=== PATIENT | female | born 1995 | race Two or more races ===

== ENCOUNTER → 2018-08-31 | Outpatient (CLI) | payer MEDICAID | END | disposition home or self-care (01) | LOC: U/S 08:00 | DX: O26.90 Pregnancy related conditions, unspecified, unspecified trimester (principal); Z3A.00 Weeks of gestation of pregnancy not specified | CPT/HCPCS: 76801; 76817 ==

== ENCOUNTER 2019-04-26 15:08 | Outpatient (CLI) | payer MEDICAID | END 2019-04-26 22:15 | disposition home or self-care (01) | LOC: OBT 15:08 → L-D 15:10 → OBT 22:15 | DX: O47.1 False labor at or after 37 completed weeks of gestation (principal); Z3A.39 39 weeks gestation of pregnancy | CPT/HCPCS: 76818 ==

== ENCOUNTER 2019-05-01 13:00 | Inpatient (IN) | payer MEDICAID ==
[2019-05-01 13:37] LABS: RUPTURE FETAL MEMBRANES POSITIVE (NEGATIVE)
[2019-05-01] MEDS ORDERED: OXYTOCIN 30 UNITS/LR 500 ML IV (15:00)
[2019-05-01] MEDS ORDERED: METHYLERGONOVINE 0.2 MG INJ IM (15:00)
[2019-05-01] MEDS ORDERED: CARBOPROST 250 MCG INJ IM (15:00)
[2019-05-01] MEDS ORDERED: MISOPROSTOL 200 MCG TAB PR (15:00)
[2019-05-01] MEDS ORDERED: LIDOCAINE 1% (MPF) 30 ML INJ INJ (15:00)
[2019-05-01 15:02] LABS: ADD MAN DIFF? NO
[2019-05-01 15:04] LABS: BASOPHILS % 0.3 % (0.0-2.0); EOSINOPHILS # 0.1 10^3/ul (0.0-0.5); EOSINOPHILS % 1.1 % (0.0-7.0); HEMATOCRIT 35.6 % (37.0-47.0); HEMOGLOBIN 11.8 g/dl (12.0-16.0); LYMPHOCYTES # 1.9 10^3/ul (0.8-2.9); LYMPHOCYTES % 23.3 % (15.0-51.0); MEAN CORPUSCULAR HEMOGLOBIN 28.6 pg (29.0-33.0); MEAN CORPUSCULAR HGB CONC 33.1 g/dl (32.0-37.0); MEAN CORPUSCULAR VOLUME 86.4 fl (82.0-101.0); MEAN PLATELET VOLUME 11.5 fl (7.4-10.4); MONOCYTE # 0.4 10^3/ul (0.3-0.9); MONOCYTES % 5.5 % (0.0-11.0); NEUTROPHIL # 5.5 10^3/ul (1.6-7.5); NEUTROPHILS % 69.4 % (39.0-77.0); PLATELET COUNT 281 10^3/UL (140-415); RED BLOOD COUNT 4.12 10^6/ul (4.20-5.40)
[2019-05-01] MEDS: AMPICILLIN 2 GM/NS (PMX) 100 ML IV (15:11)
[2019-05-01] MEDS: LACTATED RINGER'S 1,000 ML IV ×2 (15:11→21:26)
[2019-05-01 15:15] LABS: ALANINE AMINOTRANSFERASE 12 IU/L (13-69); ALBUMIN 3.4 g/dl (3.3-4.9); ALBUMIN/GLOBULIN RATIO 1.17; ALKALINE PHOSPHATASE 194 IU/L (42-121); ANION GAP 7 (5-13); ASPARTATE AMINO TRANSFERASE 24 IU/L (15-46); BILIRUBIN,INDIRECT 0.4 mg/dl (0-1.1); BILIRUBIN,TOTAL 0.4 mg/dl (0.2-1.3); BLOOD UREA NITROGEN 7 mg/dl (7-20); CALCIUM 9.2 mg/dl (8.4-10.2); CARBON DIOXIDE 23 mmol/L (21-31); CHLORIDE 107 mmol/L (97-110); CREATININE 0.58 mg/dl (0.44-1.00); Estimated GFR > 60 mL/min (>60); GLUCOSE 115 mg/dl (70-220); LACTATE DEHYDROGENASE 463 IU/L (313-618); SODIUM 137 mmol/L (135-144); TOTAL PROTEIN 6.3 g/dl (6.1-8.1)
[2019-05-01 15:23] LABS: POTASSIUM 3.9 mmol/L (3.5-5.1)
[2019-05-01 15:27] LABS: INR 0.85; PARTIAL THROMBOPLASTIN TIME 27.4 Sec (23.0-35.0); PROTIME 11.7 Sec (11.9-14.9); PT RATIO 0.9
[2019-05-01] MEDS: OXYTOCIN 30 UNITS/LR 500 ML IV (15:49)
[2019-05-01 17:00] LABS: RAPID PLASMA REAGIN NONREACTIVE (NR)
[2019-05-01] MEDS ORDERED: MISOPROSTOL 50 MCG CAPSULE PO (18:00)
[2019-05-01] MEDS: AMPICILLIN 1 GM/NS (PMX) 50 ML IV ×2 (19:14→23:20)
[2019-05-01] MEDS ORDERED: BUTORPHANOL 2 MG INJ IV (22:30)
[2019-05-01] MEDS: BUTORPHANOL 2 MG INJ IV (22:43)
[2019-05-02] MEDS: AMPICILLIN 1 GM/NS (PMX) 50 ML IV ×2 (03:30→07:46)
[2019-05-02] MEDS: LACTATED RINGER'S 1,000 ML IV ×2 (05:36→07:43)
[2019-05-02] MEDS ORDERED: FENTAnyl 2MCG/ML-ROPIV 0.2% 100 ML (05:39)
[2019-05-02] MEDS ORDERED: DIPHENHYDRAMINE 50 MG INJ IV ×3 (06:00→14:30)
[2019-05-02] MEDS ORDERED: NALOXONE (0.4 MG/ML) INJ IV (06:00)
[2019-05-02] MEDS ORDERED: FENTAnyl 2MCG/ML-ROPIV 0.2% 100 ML BAG EPI (06:00)
[2019-05-02] MEDS ORDERED: ONDANSETRON 4 MG INJ IV ×3 (06:00→14:30)
[2019-05-02] MEDS ORDERED: MINERAL OIL LIGHT 10 ML VIAL TOP (09:30)
[2019-05-02 10:12] LABS: HEPATITIS B SURFACE ANTIGEN NEGATIVE (NEGATIVE)
[2019-05-02] MEDS: OXYTOCIN 30 UNITS/LR 500 ML IV ×2 (11:01→11:41)
[2019-05-02] MEDS ORDERED: LIDOCAINE 1% (MPF) 30 ML INJ INJ (13:30)
[2019-05-02] MEDS ORDERED: CARBOPROST 250 MCG INJ IM ×3 (13:30→14:30)
[2019-05-02] MEDS ORDERED: AMPICILLIN 1 GM/NS (PMX) 50 ML IV (13:30)
[2019-05-02] MEDS ORDERED: OXYTOCIN 30 UNITS/LR 500 ML IV ×5 (13:30→14:30)
[2019-05-02] MEDS ORDERED: METHYLERGONOVINE 0.2 MG INJ IM ×3 (13:30→14:30)
[2019-05-02] MEDS ORDERED: AMPICILLIN 2 GM/NS (PMX) 100 ML IV (13:30)
[2019-05-02] MEDS ORDERED: MISOPROSTOL 200 MCG TAB PR ×3 (13:30→14:30)
[2019-05-02 14:22] LABS: ADD MAN DIFF? NO
[2019-05-02 14:24] LABS: BASOPHILS % 0.2 % (0.0-2.0); HEMATOCRIT 32.8 % (37.0-47.0); HEMOGLOBIN 10.8 g/dl (12.0-16.0); LYMPHOCYTES # 1.7 10^3/ul (0.8-2.9); LYMPHOCYTES % 12.7 % (15.0-51.0); MEAN CORPUSCULAR HEMOGLOBIN 28.7 pg (29.0-33.0); MEAN CORPUSCULAR HGB CONC 32.9 g/dl (32.0-37.0); MEAN CORPUSCULAR VOLUME 87.2 fl (82.0-101.0); MEAN PLATELET VOLUME 11.4 fl (7.4-10.4); MONOCYTE # 0.3 10^3/ul (0.3-0.9); MONOCYTES % 2.5 % (0.0-11.0); NEUTROPHIL # 11.6 10^3/ul (1.6-7.5); NEUTROPHILS % 84.1 % (39.0-77.0); PLATELET COUNT 256 10^3/UL (140-415); RED BLOOD COUNT 3.76 10^6/ul (4.20-5.40)
[2019-05-02 14:24] LABS: WHITE BLOOD COUNT 13.7 10^3/ul (4.8-10.8)
[2019-05-02] MEDS: DEXTROSE 5%-LR 1,000 ML IV ×2 (14:25)
[2019-05-02] MEDS: LACTATED RINGER'S 1,000 ML IV* (14:25)
[2019-05-02] MEDS ORDERED: LACTATED RINGER'S 1,000 ML IV* (14:25)
[2019-05-02] MEDS ORDERED: OXYCODONE/ASPIRIN (4.88/325) TAB PO (14:30)
[2019-05-02] MEDS ORDERED: WITCH HAZEL/GLYCERIN PAD PR (14:30)
[2019-05-02] MEDS ORDERED: ZOLPIDEM 5 MG TAB PO ×2 (14:30)
[2019-05-02] MEDS ORDERED: ACETAMINOPHEN 325 MG TAB PO ×2 (14:30)
[2019-05-02] MEDS ORDERED: BENZOCAINE 20% 56 ML SPRAY TOP (14:30)
[2019-05-02] MEDS ORDERED: SENNA/DOCUSATE NA (8.6MG/50MG) TAB PO ×2 (14:30)
[2019-05-02] MEDS ORDERED: LANOLIN HPA 1 PKT TOP (14:30)
[2019-05-02] MEDS: IBUPROFEN 600 MG TAB PO ×3 (14:30→23:58)
[2019-05-02 14:43] LABS: INR 0.91; PROTIME 12.4 Sec (11.9-14.9)
[2019-05-02 14:44] LABS: PARTIAL THROMBOPLASTIN TIME 26.4 Sec (23.0-35.0)
[2019-05-02 14:58] LABS: RAPID PLASMA REAGIN NONREACTIVE (NR)
[2019-05-02] MEDS: BENZOCAINE 20% 56 ML SPRAY TOP (15:28)
[2019-05-02] MEDS: WITCH HAZEL/GLYCERIN PAD PR (15:28)
[2019-05-02] MEDS: DIBUCAINE 1% 30 GM OINT TOP (15:29)
[2019-05-02] MEDS: LANOLIN HPA 1 PKT TOP (15:29)
[2019-05-02] MEDS: OXYCODONE/ASPIRIN (4.88/325) TAB PO (15:29)
[2019-05-02] MEDS ORDERED: IBUPROFEN 600 MG TAB PO (18:00)
[2019-05-03] MEDS: IBUPROFEN 600 MG TAB PO ×4 (05:46→23:32)
[2019-05-03 06:58] LABS: ADD MAN DIFF? NO
[2019-05-03 07:05] LABS: BASOPHIL # 0.1 10^3/ul (0.0-0.1); BASOPHILS % 0.5 % (0.0-2.0); EOSINOPHILS # 0.1 10^3/ul (0.0-0.5); EOSINOPHILS % 1.1 % (0.0-7.0); HEMATOCRIT 30.2 % (37.0-47.0); HEMOGLOBIN 9.9 g/dl (12.0-16.0); LYMPHOCYTES # 3.6 10^3/ul (0.8-2.9); LYMPHOCYTES % 35.5 % (15.0-51.0); MEAN CORPUSCULAR HEMOGLOBIN 28.7 pg (29.0-33.0); MEAN CORPUSCULAR HGB CONC 32.8 g/dl (32.0-37.0); MEAN CORPUSCULAR VOLUME 87.5 fl (82.0-101.0); MEAN PLATELET VOLUME 11.5 fl (7.4-10.4); MONOCYTE # 0.5 10^3/ul (0.3-0.9); MONOCYTES % 5.4 % (0.0-11.0); NEUTROPHIL # 5.8 10^3/ul (1.6-7.5); NEUTROPHILS % 57.2 % (39.0-77.0); PLATELET COUNT 248 10^3/UL (140-415); RED BLOOD COUNT 3.45 10^6/ul (4.20-5.40); RED CELL DISTRIBUTION WIDTH 14.5 % (11.5-14.5)
[2019-05-03 07:05] LABS: WHITE BLOOD COUNT 10.1 10^3/ul (4.8-10.8)
[2019-05-03] MEDS: LANOLIN HPA 1 PKT TOP (10:31)
[2019-05-03] MEDS: BENZOCAINE 20% 56 ML SPRAY TOP (18:02)
[2019-05-04] MEDS: IBUPROFEN 600 MG TAB PO ×2 (05:40→12:12)
[2019-05-04] MEDS: DIPHTH/TET/ACEL PERTUSS (ADULT) 0.5 ML VIAL IM* (08:01)
[2019-05-04] MEDS: BENZOCAINE 20% 56 ML SPRAY TOP (12:12)
[2019-05-04] MEDS: WITCH HAZEL/GLYCERIN PAD PR (12:12)
== END 2019-05-04 13:40 | disposition home or self-care (01) | DRG 807 ==
LOC: OBT 13:00 → L-D 13:01 → PP1 05-02 12:54 → OBT 13:09 → L-D 13:09
PROVIDERS: Obstetrics & Gynecology
PROC: 10E0XZZ Delivery of Products of Conception, External Approach (ICD-10-PCS; principal; 2019-05-02)
PROC: 0UQMXZZ Repair Vulva, External Approach (ICD-10-PCS; 2019-05-02)
PROC: 3E033VJ Introduction of Other Hormone into Peripheral Vein, Percutaneous Approach (ICD-10-PCS; 2019-05-02)
DX: O48.0 Post-term pregnancy (principal); Z37.0 Single live birth; O70.0 First degree perineal laceration during delivery; O99.214 Obesity complicating childbirth; O69.81X0 Labor and delivery complicated by cord around neck, without compression, not applicable or unspecified; O13.4 Gestational [pregnancy-induced] hypertension without significant proteinuria, complicating childbirth; Z3A.40 40 weeks gestation of pregnancy
CPT/HCPCS: 62322; 80053; 83615; 84112; 85025; 85610; 85730; 86592; 86850; 86900; 86901; 87340